=== PATIENT | male | born 1940 | race Caucasian/White ===

== ENCOUNTER 2025-03-18 11:31 | Emergency (ER) | payer OTHER ==
[~2025-03-18] VITALS: Ht 165.1 cm; Wt 57.0 kg
[2025-03-18 11:38] VITALS: O2SAT 98
[2025-03-18 12:22] LABS: BASOPHILS % 0.3 % (0.0-2.0); EOSINOPHILS % 0.4 % (0.0-5.0); HEMATOCRIT. 41.4 % (42.0-52.0); HEMOGLOBIN. 14.2 g/dL (14.0-18.0); LYMPHOCYTES % 11.9 % (20.0-50.0); MEAN PLATELET VOLUME 7.9 fl (7.4-10.4); MONOCYTES % 8.6 % (2.0-8.0); NEUTROPHILS % 78.8 % (40.0-76.0); PLATELET 293 x1000/uL (130-400); RED BLOOD CELL COUNT 4.40 mill/uL (4.7-6.1); RED CELL DISTRIBUTION WIDTH 14.4 % (11.6-14.6)
[2025-03-18 12:23] LABS: CREATININE 1.5 mg/dL (0.6-1.3)
[2025-03-18 12:24] LABS: ETHANOL BLOOD < 10 mg/dL (<10); UREA NITROGEN BLOOD 20 mg/dL (9-23)
[2025-03-18 12:32] LABS: CLARITY URINE CLOUDY (CLEAR); COLOR URINE DARK YELLOW (YELLOW); GLUCOSE URINE NEGATIVE (NEGATIVE); KETONES URINE 1+ (NEGATIVE); LEUKOCYTE ESTERASE URINE TRACE (NEGATIVE); NITRITE URINE NEGATIVE (NEGATIVE); OCCULT BLOOD URINE NEGATIVE (NEGATIVE); PH URINE 5.0 (4.5-8.0); PROTEIN URINE 1+ (NEGATIVE); SPECIFIC GRAVITY URINE 1.032 (1.005-1.030); UROBILINOGEN URINE 1.0 E.U./dL (0.2-1.0)
[2025-03-18 12:37] LABS: PROTEIN TOTAL 6.8 g/dL (6.0-8.3)
[2025-03-18 12:39] LABS: ASPARTATE AMINOTRANSFERASE 29 IU/L (<34); BILIRUBIN DIRECT 0.2 mg/dL (<=3.0); BILIRUBIN TOTAL 0.7 mg/dL (0.1-1.0)
[2025-03-18 13:04] LABS: *AMPHETAMINES SCREEN URINE NEGATIVE (NEGATIVE); *BARBITURATES SCREEN URINE NEGATIVE (NEGATIVE); *BENZODIAZEPINES SCREEN URINE NEGATIVE (NEGATIVE); *COCAINE SCREEN URINE NEGATIVE (NEGATIVE); CANNABINOID URINE SCREEN NEGATIVE (NEGATIVE); ECSTASY MDMA SCREEN URINE NEGATIVE (NEGATIVE); METHADONE URINE SCREEN NEGATIVE (NEGATIVE); OPIATES URINE SCREEN NEGATIVE (NEGATIVE); PHENCYCLIDINE URINE SCREEN NEGATIVE (NEGATIVE)
[2025-03-18 13:17] LABS: COARSE GRANULAR CASTS URINE 0-5 /lpf; MUCUS URINE 3+ /lpf (NONE/TRACE)
[2025-03-18 13:18] LABS: RBC URINE 0-2 /hpf (0-2); WBC URINE 0-2 /hpf (0-2)
[2025-03-18 13:19] LABS: SQUAMOUS EPITHELIAL CELL URINE 2+ /lpf (RARE/1+)
[2025-03-18 13:20] LABS: BACTERIA URINE 1+
[2025-03-18 16:52] LABS: LACTATE DEHYDROGENASE 176 IU/L (120-246)
[2025-03-18 16:53] LABS: TROPONIN I HIGH SENSITIVITY 11 ng/L (3.0-53)
[2025-03-18 18:45] VITALS: BP 182/79; PULSE 79; RESP 22; TEMP 37.1; O2SAT 98
== END 2025-03-18 19:57 | disposition short-term general hospital (02) ==
LOC: ER 11:31 → CMPBEDREQ 03-19 15:20
DX: R45.1 Restlessness and agitation (principal); F03.911 Unspecified dementia, unspecified severity, with agitation; Z79.899 Other long term (current) drug therapy
CPT/HCPCS: 36415; 71045; 80048; 80076; 80305; 80307; 80320; 80329; 81003; 82140; 83615; 83735; 84484; 85025; 93005; 99285; G0480